=== PATIENT | female | born 2000 | race Asian ===

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

== ENCOUNTER → 2022-04-14 07:16 | Outpatient (CLI) | payer OTHER, SELFPAY ==
[2020-06-04 09:50] VITALS: BMI 18.6
== END ==
PROVIDERS: Family Provider Family Medicine; PCP Family Medicine; Visit Provider Physician Assistant
DX: J02.9 Acute pharyngitis, unspecified (principal)
CPT/HCPCS: 87070; 87147

== ENCOUNTER → 2022-09-27 11:54 | Outpatient (CLI) | payer OTHER, SELFPAY ==
[2020-06-04 09:50] VITALS: BMI 18.6
== END ==
PROVIDERS: Family Provider Family Medicine; PCP Family Medicine; Visit Provider Registered Nurse
DX: J02.9 Acute pharyngitis, unspecified (principal)
CPT/HCPCS: 87070